=== PATIENT | female | born 1975 | race Caucasian/White ===

== ENCOUNTER 2022-06-15 11:46 | Emergency (ER) | payer SELFPAY ==
[~2022-06-15] VITALS: Ht 160 cm; Wt 110.0 kg
[2022-06-15] MEDS ORDERED: ONDANSETRON HCL 4MG/2ML INJ IV ONE (12:30)
[2022-06-15] MEDS ORDERED: ASPIRIN 81MG EC TABLET PO ONE (12:30)
[2022-06-15] MEDS ORDERED: METOPROLOL TARTRATE 5MG/5ML VIAL IV ONE (12:30)
[2022-06-15] MEDS ORDERED: MORPHINE SULFATE 4 MG/ML CPJ (NOT FOR IM USE) IV ONE (12:30)
[2022-06-15 12:45] LABS: BASOPHILS % 0.7 % (0.0-2.0); EOSINOPHILS % 2.1 % (0.0-5.0); HEMOGLOBIN. 12.5 g/dL (12.0-16.0); LYMPHOCYTES % 27.7 % (20.0-50.0); MEAN CORPUSCULAR HEMOGLOBIN 28.2 pg (28.0-32.0); MEAN CORPUSCULAR VOLUME 83.8 fL (81.0-99.0); MEAN PLATELET VOLUME 8.4 fl (7.4-10.4); MONOCYTES % 5.6 % (2.0-8.0); NEUTROPHILS % 63.9 % (40.0-76.0); PLATELET 330 x1000/uL (130-400); RED BLOOD CELL COUNT 4.42 mill/uL (4.2-5.4); RED CELL DISTRIBUTION WIDTH 13.2 % (11.6-14.6)
[2022-06-15 13:02] LABS: CHLORIDE 106 mEq/L (98-107)
[2022-06-15 16:07] VITALS: BP 125/71
[2022-06-15] MEDS ORDERED: ACETAMINOPHEN 325MG TABLET PO ONE (17:15)
[2022-06-15] MEDS ORDERED: ACET-2708 MT (17:48)
== END 2022-06-15 16:30 | disposition home or self-care (01) ==
LOC: ER 11:46
DX: R07.9 Chest pain, unspecified (principal); E11.9 Type 2 diabetes mellitus without complications; I25.10 Atherosclerotic heart disease of native coronary artery without angina pectoris; I10 Essential (primary) hypertension; I25.2 Old myocardial infarction; E78.00 Pure hypercholesterolemia, unspecified
CPT/HCPCS: 36415; 71045; 80053; 83880; 84484; 85025; 93005; 96374; 96375; 99285; J2270; J2405; J3490; Z7610

== ENCOUNTER 2022-07-17 10:09 | Emergency (ER) | payer SELFPAY ==
[~2022-07-17] VITALS: Ht 157.5 cm; Wt 100.0 kg
[~2022-07-17 10:09] MED LIST: ACET-2708 MT
[2022-07-17] MEDS ORDERED: KETOROLAC 60MG/2ML VIAL IM ONE (11:00)
[2022-07-17] MEDS ORDERED: ONDANSETRON 4MG ODT PO ONE (11:00)
[2022-07-17 11:04] VITALS: BP 174/117
== END 2022-07-17 13:35 | disposition left against medical advice (07) ==
LOC: ER 10:09
DX: S09.90XA Unspecified injury of head, initial encounter (principal); W22.8XXA Striking against or struck by other objects, initial encounter; Y93.89 Activity, other specified; Y92.89 Other specified places as the place of occurrence of the external cause; Y99.8 Other external cause status; I25.10 Atherosclerotic heart disease of native coronary artery without angina pectoris; E11.9 Type 2 diabetes mellitus without complications; I10 Essential (primary) hypertension; I25.2 Old myocardial infarction; R11.0 Nausea
CPT/HCPCS: 96372; 99283; J1885; Q0162